=== PATIENT | female | born 1950 | race Caucasian/White ===

== ENCOUNTER → 2017-07-31 17:02 | Outpatient (CLI) | payer MEDICARE ==
[2016-07-12 13:08] VITALS: BMI 49.7
[~2017-07-31 17:02] MED LIST: ACETAMINOPHEN325 MG PO; ANTIVERT25 MG PO; ASTELIN137 MCG NASAL; ATIVAN0.5 MG PO; ATROVENT 0.02%2.5 ML UPD; BENADRYL25 MG PO; BUMEX 1 MG TAB1 MG PO; CALCIUM 600+D T1 TA1 PO; CALTRATE 600 M600 M1 PO; COLACE100 MG PO; COUMADIN5 MG PO; COZAAR50 MG PO; CYMBALTA60 MG PO; DEMEROL50 MG PO; FISH OIL 1,0001 CA1 PO; HYDROCODONE-APA1 TAB PO; JANTOVEN7.5 MG PO; K-DUR20 MEQ PO; LEVAQUIN500 MG PO; METAMUCIL FIB1 WAFER PO; METAMUCIL PACKE1 PKT PO; METAMUCIL PO; MOBIC7.5 MG PO; MUCINEX600 MG PO; POTASSIUM99 M1 PO; PRAVACHOL20 MG PO; PROBIOTIC1 EAC1 PO; PROTONIX40 MG PO; SYNTHROID50 MCG PO; ULTRAM50 MG PO; VITAMIN C WIT1000 MG PO; VITAMIN D31000 UNIT PO; WELLBUTRIN XL150 M1 PO; WELLBUTRIN100 MG PO; ZOFRAN4 MG PO; ZYRTEC10 MG PO
== END | disposition home or self-care (01) ==
LOC: D.MAMMO 07-10 15:30
DX: Z12.31 Encounter for screening mammogram for malignant neoplasm of breast (principal)

== ENCOUNTER → 2017-11-21 10:52 | Outpatient (CLI) | payer MEDICARE ==
[2016-07-12 13:08] VITALS: BMI 49.7
== END | disposition home or self-care (01) ==
LOC: D.CT 10:52
DX: R59.0 Localized enlarged lymph nodes (principal)

== ENCOUNTER 2018-04-20 22:32 | Emergency (ER) | payer MEDICARE ==
[~2018-04-20] VITALS: Ht 160 cm; Wt 127.3 kg
[2018-04-20 22:37] VITALS: Ht 160 cm; Wt 127.3 kg
[2018-04-20 23:07] LABS: APPEARANCE HAZY (CLEAR); BACTERIA MODERATE /hpf (NONE SEEN); BILIRUBIN NEGATIVE (NEGATIVE); COLOR YELLOW (YELLOW); GLUCOSE NEGATIVE (NEGATIVE); KETONE NEGATIVE (NEGATIVE); NITRITE NEGATIVE (NEGATIVE); PROTEIN NEGATIVE (NEGATIVE); RED CELLS - URINE NONE SEEN /hpf (0-5); SPECIFIC GRAVITY 1.015 (1.005-1.020); UROBILINOGEN NORMAL (NORMAL)
[2018-04-21] MEDS ORDERED: ROBAXIN500 MG PO (02:49)
[2018-04-21 03:14] VITALS: BP 129/50
== END 2018-04-21 03:15 | disposition home or self-care (01) ==
LOC: D.ER 22:32
PROVIDERS: Family Medicine
DX: M54.5 Low back pain (principal); E07.9 Disorder of thyroid, unspecified; I10 Essential (primary) hypertension

== ENCOUNTER 2018-04-25 13:21 | Day surgery (SDC) | payer MEDICARE ==
[~2018-04-25] VITALS: Ht 157.5 cm; Wt 130.0 kg
--- NOTE | ~2018-04-25 | OP ---
PATIENT NAME: PARISA ARTEAGA MEDICAL RECORD: [id number] :48 LOCATION:[facility] ADMISSION DATE: SURGEON: MINO ELLISON MD DATE OF OPERATION: 04/25/2018 REFERRING PHYSICIAN: Dr. Joel Howell. INDICATIONS: Ms. Arteaga is a delightful 67-year-old woman with a history of heartburn that has been present for several months. She has been taking Protonix 40 mg twice a day with improvement in her symptoms. She presents for outpatient EGD. PREMEDICATIONS: Total IV anesthesia (obstructive sleep apnea) propofol 170 mg. INSTRUMENT: Olympus video gastroscope. PROCEDURE AND FINDINGS: After receiving informed consent, Ms. Arteaga's posterior pharynx anesthetized with Cetacaine spray, placed in left lateral decubitus position, sedated as per anesthesia. After achieving an adequate level of sedation, gastroscope was introduced per orally and advanced into duodenum without difficulty. The esophageal mucosa was without erythema or ulcers. The Z-line was slightly irregular and biopsies were taken in the distal third of the esophagus. A small hiatal hernia is present. Gastric mucosa was notable for mild prepyloric and antral erythema and antral biopsies were obtained to rule out Helicobacter pylori. A few polyps measuring 0.3-0.5 cm in size, sessile were noted in the distal body of the stomach and were biopsied. Retroflexion in the stomach showed no lesions in the cardia or fundus. Pylorus was patent and competent. The gastroscope was advanced to the second portion of duodenum and the duodenal mucosa was without erythema or ulcers. The gastroscope was then withdrawn. Ms. Arteaga tolerated the procedure well, no immediate complications. ASSESSMENT: 1. Slightly irregular Z-line secondary to gastroesophageal reflux disease. 2. Small hiatal hernia. 3. Gastritis. 4. Gastric polyps. RECOMMENDATIONS: 1. Follow up histopathology. 2. Continue Protonix 40 mg b.i.d. 3. Reflux precautions. TRANSINT:[id number] Voice Confirmation ID: [id number] DOCUMENT ID: [id number] MINO ELLISON MD at 1808 CC: JOEL HOWELL DO [id number] DICTATION DATE: 04/25/18 151 ART GLASS DESIGNER: 04/25/18 1540 [facility] 04/25/18 [facility] [address] [place] [address]
[~2018-04-25 13:21] MED LIST changes: +ROBAXIN500 MG PO
[2018-04-25 14:06] LABS: HEMATOCRIT 40.2 % (36.0-48.0); HEMOGLOBIN 13.7 g/dL (12-16); MCH 30.8 pg (26.0-34.0); MCHC 34.1 g/dL (31.0-37.0); MCV 90.3 fL (80.0-100.0); RBC 4.45 10x6/uL (4.00-5.40); RDW 14.4 % (11.5-14.5); WBC 5.7 10x3/uL (4.8-10.8)
[2018-04-25 14:12] LABS: APTT 24.5 SECONDS (22.8-39.4); INR 0.96 (0.85-1.17); PROTIME 12.4 SECONDS (11.6-15.0)
[2018-04-25 14:33] VITALS: BP 142/73; Ht 157.5 cm; Wt 130.0 kg
== END 2018-04-25 14:25 | disposition home or self-care (01) ==
LOC: D.OPS 13:21 → D.LAB 13:21 → D.OPS 14:25
PROVIDERS: Anesthesiology
DX: K21.9 Gastro-esophageal reflux disease without esophagitis (principal); K44.9 Diaphragmatic hernia without obstruction or gangrene; K29.70 Gastritis, unspecified, without bleeding; K31.7 Polyp of stomach and duodenum; Z01.812 Encounter for preprocedural laboratory examination; G47.33 Obstructive sleep apnea (adult) (pediatric)

== ENCOUNTER 2018-05-16 13:11 | Day surgery (SDC) | payer MEDICARE ==
[~2018-05-16] VITALS: Ht 157.5 cm; Wt 129.5 kg
--- NOTE | ~2018-05-16 | OP ---
PATIENT NAME: PARISA ARTEAGA MEDICAL RECORD: [id number] :48 LOCATION:[facility] ADMISSION DATE: SURGEON: MINO ELLISON MD DATE OF OPERATION: 05/16/2018 PROCEDURE: Colonoscopy. REFERRING PHYSICIAN: Dr. Joel Howell. INDICATIONS: Ms. Arteaga is a delightful 67-year-old woman who has been having symptoms of heartburn, dysphagia, and new onset constipation. She had an EGD on 04/25/2018 that showed a slight irregular Z line, small hiatal hernia, gastritis and gastric polyps. Antral biopsies were negative for H. pylori, gastric polyps or fundic gland polyps. 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 Her last colonoscopy on 03/11/2015 showed mild sigmoid diverticulosis coli, inflammatory polyp in the transverse colon. She presents for outpatient colonoscopy. PREMEDICATIONS: Total IV anesthesia (propofol 280 mg), history of obstructive sleep apnea. PROCEDURE AND FINDINGS: After receiving informed consent, Ms. Arteaga was placed in left lateral decubitus position, sedated as per anesthesia. After achieving an adequate level of sedation, digital rectal exam was performed that showed no external hemorrhoidal tags, fissures or fistulas, normal sphincter tone, no palpable rectal masses. The colonoscope was introduced per rectally and advanced to cecum with mild difficulty. She had a redundant transverse colon. The cecum, IC valve, and appendiceal orifice were identified and appeared normal. As the colonoscope was withdrawn, careful inspection was made of the becker of the colon. Overall mucosa had normal vascular and fold pattern. A few diverticula were seen scattered in the sigmoid and descending colon. Retroflexion in the rectum showed no significant internal hemorrhoids. A good prep was present. Withdrawal time was 6 minutes. Ms. Arteaga tolerated the procedure well, no immediate complications. ASSESSMENT: 1. Mild left colonic diverticulosis coli. 2. Otherwise, normal colonoscopy. 3. New onset constipation may be secondary to medications. RECOMMENDATIONS: 1. Daily Metamucil and stool softener b.i.d. 2. Screening colonoscopy in 5 years. TRANSINT:[id number] Voice Confirmation ID: [id number] DOCUMENT ID: [id number] MINO ELLISON MD at 1726 CC: JOEL HOWELL DO [id number] DICTATION DATE: 05/16/18 1557 DRAPERY CUTTER: 05/16/18 1638 [facility] 05/16/18 [place] [id number] [place] [id number]
[2018-05-16 13:47] LABS: HEMATOCRIT 39.5 % (36.0-48.0); HEMOGLOBIN 13.5 g/dL (12-16); MCH 30.7 pg (26.0-34.0); MCHC 34.2 g/dL (31.0-37.0); MCV 89.8 fL (80.0-100.0); RBC 4.4 10x6/uL (4.00-5.40); RDW 14.7 % (11.5-14.5); WBC 5.2 10x3/uL (4.8-10.8)
[2018-05-16 13:51] LABS: ANION GAP 12.5 mmol/L (8-16); CALCIUM 8.7 mg/dL (8.5-10.1); CARBON DIOXIDE 28.3 mmol/L (21.0-32.0); CREATININE - SERUM 1.1 mg/dL (0.6-1.3); POTASSIUM - SERUM 3.8 mmol/L (3.5-5.1)
[2018-05-16 14:04] LABS: APTT 24.7 SECONDS (22.8-39.4); INR 1.06 (0.85-1.17); PROTIME 13.4 SECONDS (11.6-15.0)
[2018-05-16 14:26] VITALS: BP 148/70; Ht 157.5 cm; Wt 129.5 kg
== END 2018-05-16 17:00 | disposition home or self-care (01) ==
LOC: D.OPS 13:11
PROVIDERS: Anesthesiology
DX: K57.30 Diverticulosis of large intestine without perforation or abscess without bleeding (principal); K59.00 Constipation, unspecified; G47.33 Obstructive sleep apnea (adult) (pediatric); Z01.812 Encounter for preprocedural laboratory examination

== ENCOUNTER → 2020-01-19 22:39 | Outpatient (CLI) | payer MEDICARE ==
[2018-05-16 14:26] VITALS: BMI 52.2
== END | disposition home or self-care (01) ==
LOC: D.MAMMO 12-08 15:45
PROVIDERS: ATTEND Obstetrics & Gynecology
DX: Z12.31 Encounter for screening mammogram for malignant neoplasm of breast (principal)

== ENCOUNTER → 2020-12-21 13:11 | Outpatient (CLI) | payer MEDICARE ==
[2020-10-08 12:28] VITALS: BMI 45.8
[~2020-12-21 13:11] MED LIST changes: +L-METHYLFOLATE7.5 MG PO; +MECLIZINE HCL25 MG PO; +RESTORIL15 MG PO
== END | disposition home or self-care (01) ==
LOC: D.RAD 13:00
PROVIDERS: ATTEND Internal Medicine Gastroenterology
DX: R13.10 Dysphagia, unspecified (principal)